=== PATIENT | male | born 1965 | race Caucasian/White ===

== ENCOUNTER 2017-06-13 15:38 | Emergency (ER) | payer OTHER ==
[~2017-06-13] VITALS: Ht 182.9 cm; Wt 99.8 kg
[~2017-06-13 15:38] MED LIST: ZOFRAN ODT4 MG SL
--- NOTE | 2017-06-13 16:27 | ED PSYCHIATRIC COMPLAINT ---
See Addendum History of Present Illness General Chief Complaint: ETOH/Drug Related Complaint Stated Complaint: OPIATE WITHDRAWLS Source: patient, old records Exam Limitations: no limitations Vital Signs & Intake/Output Vital Signs & Intake/Output Vital Signs Date Time Temp Pulse Resp B/P B/P Pulse O2 O2 Flow FiO2 Mean Ox Delivery Rate 06/13 1728 148/92 06/13 1556 98.2 86 16 100 Allergies Coded Allergies: NO KNOWN ALLERGIES (07/28/10) Reconcile Medications Ondansetron (Zofran Odt) 4 MG TAB.RAPDIS 1 TAB SL Q8HR PRN NAUSEA Triage Note: PT STATES HE IS HERE HAVING WITHDRAWS FROM [facility]IN KILLERS. PT STATES HE TAKES 10 TRAMADOL TABS EVERY 2 HOURS FOR LAST 1-2 YEARS.. PT STATES THAT HE BOUGHT THEM ONLINE.. PT STATES HE STOLE FRIENDS BENZO'S AND STARTED TO "WACK OUT" PT JITTERY IN TRIAGE. PT STATES LAST TIME HE TOOK ANY PILLS WAS 2 DAYS AGO. PT STATES I FEEL LIKE I HAVE THE FLU REALLY BAD. PT STATES HE HAS THOUGHTS OF WANTING TO HARM HIMSELF, PT STATES HE WAS LOOKING UP HOW TO KILL HIMSELF ONLINE.. PT STATES HE WAS GOING TO FILL WATER BOTTLE WITH GRAIN ALCOHOL AND INJECT IT UP HIS ANUS, HE READ THAT IT WILL MAKE YOU ON THE SPOT. PT DENIES HI.. Triage Nurses Notes Reviewed? yes Onset: several days Duration: day(s): Timing: recent history Severity: moderate Associated Symptoms: impaired concentration, insomnia, suicidal ideation HPI: Several days prior to admission patient decided he wanted to stop abusing tramadol. 1 day prior to admission he was seen at [facility] and discharged with outpatient referrals. He now considers suicide by taylor injection of alcohol into his anus. He feels these withdrawing from tramadol with body aches nausea chills. He denies fever vomiting diarrhea chest pain cough shortness breath headache dysuria rash bleeding. (Marleni DUENAS,Cuco) Past History Travel History Traveled to [place] past 21 day No Medical History Any Pertinent Medical History? 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 No (Cuco Yepez MD) Review of Systems Review of Systems Constitutional: Reports: see HPI, chills. EENTM: Reports: no symptoms. Respiratory: Reports: no symptoms. Cardiovascular: Reports: no symptoms. GI: Reports: no symptoms. Genitourinary: Reports: no symptoms. Musculoskeletal: Reports: see HPI, muscle pain. Skin: Reports: no symptoms. Neurological/Psychological: Reports: no symptoms. Hematologic/Endocrine: Reports: no symptoms. Immunologic/Allergic: Reports: no symptoms. All Other Systems: Reviewed and Negative (Cuco Yepez MD) Physical Exam Physical Exam General Appearance: well developed/nourished, alert, awake, anxious, mild distress Head: atraumatic, normal appearance Eyes: Bilateral: PERRL, EOMI. 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 yes 1 Age <19 or >45 years? yes 1 Depression/Hopelessness? yes 2 Previous Attempts/Psych Care yes 1 Excessive Ethanol/Drug Use? yes 1 Rational Thinking Loss? yes 2 Single//? yes 1 Social Support? has no support 1 Stated Future Intent? yes 2 Total 12 SAD PERSONS Done? yes (Cuco Yepez MD) Progress Differential Diagnosis: drug intoxication, drug overdose, drug withdrawal, electrolyte abnormality, hypoglycemia Plan of Care: Orders Procedure Date/time Status Regular Diet 06/14 B Active ED CRISIS PSYCH CONSULT 06/13 1625 Active Continuous Observation Monitor 06/13 161 Active URINE DRUG SCREEN FOR ER ONLY 06/13 161 Complete ETHANOL 06/13 161 Active COMPREHENSIVE METABOLIC PANEL 04/29 1614 Active CBC WITHOUT DIFFERENTIAL 06/13 1614 Complete Current Medications Sig/Darrell Start time Last Medication Dose Stop Time Status Admin Acetaminophen 650 MG Q4P PRN 06/13 2145 UNVr (Tylenol) Ibuprofen 600 MG Q6P PRN 06/13 1630 AC 06/13 (Motrin) 1728 Clonidine 0.1 MG TID 06/13 1624 UNVr 06/13 (Catapres) 1728 Gabapentin 300 MG Q8 06/13 1624 UNVr 06/13 (Neurontin) 1728 Laboratory Tests 06/13/17 2107: Sodium Pending, Potassium Pending, Chloride Pending, Carbon Dioxide Pending, Anion Gap Pending, BUN Pending, Creatinine Pending, BUN/Creatinine Ratio Pending , Glucose Pending, Calcium Pending, Total Bilirubin Pending, AST Pending, ALT Pending, Alkaline Phosphatase Pending, Total Protein Pending, Albumin Pending, Globulin Pending, Albumin/Globulin Ratio Pending, CBC w Diff NO MAN DIFF REQ, RBC 4.80, MCV 95.0 H, MCH 31.8 H, MCHC 33.4, RDW 14.2, MPV 8.1, Gran % 67.7, Lymphocytes % 19.9 L, Monocytes % 11.3 H, Eosinophils % 0.7, Basophils % 0.4, Absolute Granulocytes 7.3 H, Absolute Lymphocytes 2.1, Absolute Monocytes 1.2 H, Absolute Eosinophils 0.1, Absolute Basophils 0, Serum Alcohol Pending 06/13/17 1653: Urine Opiates Screen < 100, Methadone Screen < 40, Barbiturate Screen < 60, Ur Phencyclidine Scrn < 6.00, Amphetamines Screen 105, U Benzodiazepines Scrn 514 H, Urine Cocaine Screen < 50, Urine Cannabis Screen < 5.00 Hand-Off Endorsed To: Trell Lam MD Endorsed Time: 1919 Pending: consult, labs (Cuco Yepez MD) Hand-Off Endorsed To: Lyndon Andrade MD Endorsed Time: 07 Pending: consult (Trell Lam MD) Departure Departure Disposition: STILL A PATIENT Condition: Stable Clinical Impression Primary Impression: Suicidal ideation Secondary Impressions: Drug abuse and dependence Referrals: Radu Hidalgo MD (PCP/Family) Departure Forms: Customer Survey General Discharge Information (Cuco Yepez MD)
--- NOTE | 2017-06-13 19:53 | ED PSY CRISIS COLLATERAL NOTE ---
Collateral Note Collateral Note Family/Inform/Tamiko Contacts: Voice message left for Pt's sister Mary Lou Bee for collateral.
[2017-06-13 21:32] LABS: ABSOLUTE BASOPHIL COUNT 0 /CUMM (0.0-0.2); ABSOLUTE EOSINOPHIL COUNT 0.1 /CUMM (0.0-0.7); ABSOLUTE GRANULOCYTE CT 7.3 /CUMM (1.4-6.5); ABSOLUTE LYMPH COUNT 2.1 /CUMM (1.2-3.4); ABSOLUTE MONOCYTE COUNT 1.2 /CUMM (0.10-0.60); BASOPHIL % 0.4 % (0.0-2.0); EOSINOPHIL % 0.7 % (0-5); GRANULOCYTE % 67.7 % (42.2-75.2); HEMATOCRIT 45.6 % (42-52); MEAN CORPUSCULAR HGB 31.8 PG (27.0-31.0); MEAN CORPUSCULAR HGB CONC 33.4 G/DL (33.0-37.0); MEAN PLATELET VOLUME 8.1 FL (7.4-10.4); PLATELET COUNT 311 /CUMM (130-400); RBC DISTRIBUTION WIDTH 14.2 % (11.5-14.5); WHITE BLOOD CELL COUNT 10.8 /CUMM (4.8-10.8)
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
[2017-06-15 08:56] VITALS: BP 115/73
== END 2017-06-15 10:04 ==
LOC: ERH 15:38 → ENTRNSPT 21:19 → EDTRNSPTSTS 21:21 → CMPTRNSPT 21:53 → ERH 06-15 10:04
PROVIDERS: Emergency Medicine
DX: F11.23 Opioid dependence with withdrawal (principal); R45.851 Suicidal ideations
CPT/HCPCS: 80307; G0463; G0480